=== PATIENT | female | born 1950 | race Caucasian/White ===

== ENCOUNTER 2018-05-02 19:29 | Emergency (ER) | payer MEDICARE, OTHER ==
[~2018-05-02] VITALS: Ht 170.2 cm; Wt 81.6 kg
--- NOTE | 2018-05-02 19:34 | ED.ADGEN ---
Adult General Chief Complaint Chief Complaint " I was having a dinner constitution party... and I tripped over Jennifer .. my dog of 11 yrs.. and went down hard on the Lt side..." HPI HPI Patient is a 67 year old female who presents with above hx and complaints of Lt. shoulder, elbow and forearm contusions. Pt. has some Lt chest wall tenderness. Pt. Distal sensation intact. Wedding ring removed. Pain with ROM of elbow and shoulder. Has some findings of rotator cuff injury, unable to hold arm extended. No loss of Deltoid sensations. Pt. is right hand dominate. No other injury reported except 0.5 cm on Lt eye brow. Pt. up to date with vaccinations. Pt. follows at [facility]. Review of Systems Review of Systems Constitutional: Denies fever or chills [] Eyes: Denies change in visual acuity, redness, or eye pain [] HENT: Denies nasal congestion or sore throat [] Laceration Lt eye brow. Respiratory: Denies cough or shortness of breath [] Cardiovascular: No additional information not addressed in HPI [] GI: Denies abdominal pain, nausea, vomiting, bloody stools or diarrhea [] : Denies dysuria or hematuria [] Musculoskeletal: Denies back pain or joint pain [] Lt shoulder and elbow pain. Integument: Denies rash or skin lesions [] Neurologic: Denies headache, focal weakness or sensory changes [] Endocrine: Denies polyuria or polydipsia [] All other systems were reviewed and found to be within normal limits, except as documented in this note. Family History Family History Non-contributory Current Medications Current Medications Current Medications Medications (Trade) Dose Ordered Sig/Ren Start Time Stop Time Status Last Admin Dose Admin Morphine Sulfate (Morphine 10mg Syringe) 10 mg 1X ONCE 05/02/18 19:45 05/02/18 20:00 DC 05/02/18 19:51 10 MG Allergies Allergies Allergies Coded Allergies Type Severity Reaction Last Updated Verified No Known Drug Allergies 05/02/18 No Physical Exam Physical Exam Constitutional: Well developed, well nourished, moderately acute distress, non- toxic appearance. [] HENT: Normocephalic, atraumatic, bilateral external ears normal, oropharynx moist, no oral exudates, nose normal. [] Eyes: PERRLA, EOMI, conjunctiva normal, no discharge. [] Neck: Normal range of motion, no tenderness, supple, no stridor. [] Cardiovascular:Heart rate regular rhythm, no murmur [] Lungs & Thorax: Bilateral breath sounds equal at apex, with some Lt chest wall tenderness. ] Abdomen: Bowel sounds normal, soft, no tenderness, no masses, no pulsatile masses. [] Skin: Warm, dry, no erythema, no rash. [] Back: No tenderness, no CVA tenderness. [] Extremities: Lt arm tenderness as per HPI, no cyanosis, no clubbing, ROM intact , no edema. [] Neurologic: Alert and oriented X 3, normal motor function, normal sensory function, no focal deficits noted. [] Psychologic: Affect anxious, , judgement normal, mood normal. [] Current Patient Data Vital Signs Vital Signs Date Time Temp Pulse Resp B/P (MAP) Pulse Ox O2 Delivery O2 Flow Rate FiO2 05/02/18 20:56 76 18 136/76 (96) 98 Room Air 05/02/18 19:46 98.2 EKG EKG [] Radiology/Procedures Radiology/Procedures My interpretation of Chest shows no obvious pneumothorax. No acute cardiopulmonary findings noted. Some bilateral atelectasis. Mild chronic changes and blunting a Lt sherman phrenic angle.[] My interpretation of left forearm film shows no obvious displaced fracture of humerus and shoulder. There are some mild arthritic changes. Left radial head has a bone spur versus nondisplaced fracture. Course & Med Decision Making Course & Med Decision Making Pertinent Labs and Imaging studies reviewed. (See chart for details) Patient to use ice as needed for times a day. Take Tylenol or ibuprofen for pain. Wear sling. Marked pain may take Vicoprofen up 4 times a day. Follow-up primary care. Follow-up orthopedics. Do passive range of motion to left shoulder 4 times a day. Return if any concerns. Disposition neurovascular intact after application of sling. [] Final Impression Final Impression 1. Laceration 0.5 cm Lt eye brown 2. Lt. shoulder[] rotator injury 3. Possible left radial head fracture versus arthritic spur Dragon Disclaimer Dragon Disclaimer This electronic medical record was generated, in whole or in part, using a voice recognition dictation system. MELQUIADES MARTINEZ MD May 02, 2018 19:34
[2018-05-02] MEDS ORDERED: MORPHINE SULFATE 10 MG/ML SYRINGE. SQ ONE (19:45)
[2018-05-02] MEDS ORDERED: HYDR-79 PO (20:41)
[2018-05-02] MEDS ORDERED: IBUP-1227 PO (20:41)
[2018-05-02] MEDS ORDERED: BACI28.34 TP (20:41)
[2018-05-02 20:56] VITALS: BP 136/76
--- NOTE | 2018-05-03 02:58 | RAD ---
Chest PA and lateral: Reason for examination: Fell with left shoulder pain. The heart size is normal. Mediastinum is unremarkable. Lung chadwick show some linear density at the bases bilaterally which may reflect some atelectasis. No acute bony abnormalities are seen. Impression: Linear densities probably reflecting atelectasis at the lung bases. Left shoulder 3 views: No fracture or dislocation is evident. The bone density is normal. Joint spaces are maintained. No abnormal periosteal reaction is seen. IMPRESSION: No acute bony abnormality at the left shoulder. Left elbow 3 views: There appears to be a fracture at the radial head with intra-articular extension. Distal left humerus and proximal ulna appear to be intact. Joint spaces are fairly well-maintained. There is a joint effusion present. IMPRESSION: Fractured radial head with left joint effusion. Left forearm 2 views: Again evident is a fracture at the radial head with intra-articular extension. No other site of radial or ulnar fracture is seen. No abnormality seen at the wrist joint. IMPRESSION: Fractured radial head with intra-articular extension. No other fracture seen at the radius or ulna. Electronically signed by: Maribeth Duran MD (05/03/2018 2:55 AM) [facility] [place]
== END 2018-05-02 20:58 | disposition home or self-care (01) ==
LOC: ER 19:29
DX: S01.112A Laceration without foreign body of left eyelid and periocular area, initial encounter (principal); S46.002A Unspecified injury of muscle(s) and tendon(s) of the rotator cuff of left shoulder, initial encounter; W01.0XXA Fall on same level from slipping, tripping and stumbling without subsequent striking against object, initial encounter; Y93.89 Activity, other specified; Y99.8 Other external cause status; Y92.89 Other specified places as the place of occurrence of the external cause
CPT/HCPCS: 71046; 73030; 73080; 73090; 96372; 99284; J2270

== ENCOUNTER 2021-01-26 16:55 | Emergency (ER) | payer MEDICARE, OTHER ==
[~2021-01-26] VITALS: Ht 170.2 cm; Wt 77.2 kg
[~2021-01-26 16:55] MED LIST: BACI28.34 TP; HYDR-1179 PO; IBUP-1673 PO
--- NOTE | 2021-01-26 17:36 | RAD ---
PA and lateral chest. HISTORY: Recent rib fractures PA and lateral views were taken of the chest. There is no pneumothorax or pleural effusion. There are no acute infiltrates. Heart is normal in size. Recent images are not available for comparison. If re evaluation of rib fractures is warranted then rib films would be of benefit. IMPRESSION: 1. No pneumothorax or pleural effusion. 2. No acute infiltrates. Electronically signed by: Raymundo Esposito MD (01/26/2021 5:34 PM) [facility]
[2021-01-26 17:37] VITALS: BP 123/44
[2021-01-26] MEDS ORDERED: HYDR-2759 PO (17:46)
--- NOTE | 2021-01-26 17:46 | PHYS DOC ---
Past History Past Medical History: Asthma, GERD, High Cholesterol Past Surgical History: Hysterectomy Alcohol Use: Heavy Additional Alcohol Information: ONE GLASS OF WINE EVERY NIGHT Drug Use: None General Adult EDM: Chief Complaint: RIB PAIN HPI: HPI: Patient is a 70-year-old female who presented to ER for evaluation of right side rib pain. Patient states she was walking outside with her dog, tripped over her dog and fell down on her right side 3 weeks ago. Patient with complaint of right-sided rib pain, patient was seen by her family physician on January 23, has some x-ray done, today they called who to inform her that she had 3 broken ribs, told to come to ER for evaluation. Patient was given tramadol for pain control. Patient still having right-sided rib pain, denies any trouble breathing. Patient denies any abdominal pain, no nausea vomiting. Patient denied headache, no neck pain, no back pain. Review of Systems: Review of Systems: Constitutional: Denies fever or chills Eyes: Denies change in visual acuity HENT: Denies nasal congestion or sore throat Respiratory: Positive for right-sided rib pain Cardiovascular: Denies chest pain or edema GI: Denies abdominal pain, nausea, vomiting, bloody stools or diarrhea : Denies dysuria Musculoskeletal: Denies back pain or joint pain Integument: Denies rash Neurologic: Denies headache, focal weakness or sensory changes Endocrine: Denies polyuria or polydipsia Lymphatic: Denies swollen glands Psychiatric: Denies depression or anxiety Allergies: Allergies: Allergies Coded Allergies Type Severity Reaction Last Updated Verified No Known Drug Allergies 01/26/21 No Physical Exam: PE: Constitutional: Well developed, well nourished, no acute distress, non-toxic appearance. [] HENT: Normocephalic, atraumatic, bilateral external ears normal, oropharynx moist, no oral exudates, nose normal. [] Eyes: PERRLA, EOMI, conjunctiva normal, no discharge. [] Neck: Normal range of motion, no tenderness, supple, no stridor. [] Cardiovascular:Heart rate regular rhythm, no murmur [] Lungs & Thorax: Bilateral breath sounds clear to auscultation, there is no crepitus, no contusion on the right side of the chest, no abdominal tenderness to palpation Abdomen: Bowel sounds normal, soft, no tenderness, no masses, no pulsatile masses. [] Skin: Warm, dry, no erythema, no rash. [] Back: No tenderness, no CVA tenderness. [] Extremities: No tenderness, no cyanosis, no clubbing, ROM intact, no edema. [] Neurologic: Alert and oriented X 3, normal motor function, normal sensory function, no focal deficits noted. [] Psychologic: Affect normal, judgement normal, mood normal. [] Current Patient Data: Vital Signs: Vital Signs Date Time Temp Pulse Resp B/P (MAP) Pulse Ox O2 Delivery O2 Flow Rate FiO2 01/26/21 17:37 98.7 62 20 123/44 (70 96 Room Air EKG: EKG: [] Radiology/Procedures: Radiology/Procedures: [][address] [id number] IMAGING REPORT Signed PATIENT: CONRADO ALAMO ACCOUNT: [id number] : 1950 LOCATION: ER AGE: 70 SEX: F EXAM STATUS: REG ER ORD. PHYSICIAN: WENDY SABILLON DO REASON: FELL THREE WEEKS AGO, HAD 3 FRACTURE RIBS ON XRAY ON 01/23/21, PROCEDURE: CHEST PA & LATERAL PA and lateral chest. HISTORY: Recent rib fractures PA and lateral views were taken of the chest. There is no pneumothorax or pleural effusion. There are no acute infiltrates. Heart is normal in size. Recent images are not available for comparison. If reevaluation of rib fractures is warranted then rib films would be of benefit. IMPRESSION: 1. No pneumothorax or pleural effusion. 2. No acute infiltrates. Electronically signed by: Raymundo Esposito MD (01/26/2021 5:34 PM) [facility] DICTATED AND SIGNED BY: RAYMUNDO ESPOSITO MD DATE: 01/26/211730 CC: WENDY SABILLON DO; MADAN GANN DO ~MTH0 0 Heart Score: C/O Chest Pain: N/A Risk Factors: Risk Factors: DM, Current or recent (<one month) smoker, HTN, HLP, family history of CAD, obesity. Risk Scores: Score 0 - 3: 2.5% MACE over next 6 weeks - Discharge Home Score 4 - 6: 20.3% MACE over next 6 weeks - Admit for Clinical Observation Score 7 - 10: 72.7% MACE over next 6 weeks - Early Invasive Strategies Course & Med Decision Making: Course & Med Decision Making Pertinent Labs and Imaging studies reviewed. (See chart for details) Patient is a 70-year-old female who presented to ER for evaluation 3 weeks after she fell on her right side., Right-sided rib pain, chest x-ray of her lung did not show any pneumonia or pneumothorax or obvious broken rib. Patient was given a prescription for [place] to control pain, instructed to stop tramadol if she taking [place]. Dragon Disclaimer: Dragon Disclaimer: This electronic medical record was generated, in whole or in part, using a voice recognition dictation system. Departure Departure: Impression: Primary Impression: Contusion of right chest wall Disposition: 01 DC HOME SELF CARE/HOMELESS Condition: STABLE Referrals: MADAN GANN DO (PCP) follow up with your doctor as needed Patient Instructions: Chest Contusion Scripts Hydrocodone/Acetaminophen (Hydrocodone-Acetamin 5-325 mg) 1 Each Tablet 1 EACH PO Q6HRS PRN for PAIN, #12 TAB Prov: WENDY SABILLON DO 01/26/21 WENDY SABILLON DO Jan 26, 2021 17:46
== END 2021-01-26 18:05 | disposition home or self-care (01) ==
LOC: ER 16:55
DX: S20.211A Contusion of right front wall of thorax, initial encounter (principal); J45.909 Unspecified asthma, uncomplicated; K21.9 Gastro-esophageal reflux disease without esophagitis; E78.00 Pure hypercholesterolemia, unspecified; F10.20 Alcohol dependence, uncomplicated; Y90.9 Presence of alcohol in blood, level not specified; W01.0XXA Fall on same level from slipping, tripping and stumbling without subsequent striking against object, initial encounter; Y93.01 Activity, walking, marching and hiking; Y92.89 Other specified places as the place of occurrence of the external cause; Y99.8 Other external cause status
CPT/HCPCS: 71046; 99284